=== PATIENT | female | born 1960 | race Caucasian/White ===

== ENCOUNTER 2018-06-21 09:36 | Emergency (ER) | END 2018-06-21 12:04 | disposition home or self-care (01) ==

== ENCOUNTER 2018-08-19 13:10 | Emergency (ER) | END 2018-08-19 15:58 | disposition home or self-care (01) ==

== ENCOUNTER 2018-10-29 08:37 | Emergency (ER) | END 2018-10-29 13:28 | disposition home or self-care (01) ==

== ENCOUNTER 2018-12-10 10:04 | Emergency (ER) | payer MEDICAID ==
[~2018-12-10] VITALS: Ht 152.4 cm; Wt 73.6 kg
[~2018-12-10 10:04] MED LIST: CEPH-443 PO; HYDR-4011 PO; IBUP800T48 PO; MUPI22OI2 TOP; NAPR-985 PO; SULF1TAB31 PO; TRAM50TA2 PO
[2018-12-10 10:12] VITALS: BP 180/71; PULSE 92; RESP 18; Ht 152.4 cm; Wt 73.6 kg
[2018-12-10] MEDS ORDERED: IBUP-1542 PO (12:37)
--- NOTE | 2018-12-10 17:14 | ERD ---
ER Documentation Chief Complaint Chief Complaint NECK PAIN AND LOWER BACK PAIN SINCE THIS AM HPI 58-year-old female presents for neck pain and low back pain times 1 day. The neck pain is located on the right side of the neck. Pain is rated 8 out of 10. She denies any pain radiation from the low back. Denies any fevers or chills. She took Advil 800 mg at home without relief. She also notes that she has chest pain which is worse with breathing. Denies chest pain when not taking deep breathes. Denies any fevers or chills. No shortness of breath, abdominal pain, nausea, vomiting. ROS All systems reviewed and are negative except as per history of present illness. Medications Home Meds Active Scripts Ibuprofen* (Motrin*) 600 Mg Tab, 600 MG PO Q6H PRN for PAIN AND OR ELEVATED TEMP, #30 TAB Prov:ROHAN ARCEO DO 12/10/18 Naproxen* (Naprosyn*) 500 Mg Tablet, 500 MG PO BID PRN for PAIN AND/OR INFLAMMATION, #30 TAB Prov:IVETH HICKS PA-C 10/29/18 Tramadol HCl (Tramadol HCl) 50 Mg Tablet, 50 MG PO Q6 PRN for PAIN, #15 TAB Prov:IVETH HICKS PA-C 10/29/18 Hydrocodone/Acetaminophen (Rumely 5-325 Tablet) 1 Each Tablet, 1 TAB PO Q6H PRN for PAIN, #20 TAB Prov:KATHY GUAMAN PA-C 08/19/18 Cephalexin* (Keflex*) 500 Mg Capsule, 500 MG PO QID for 7 Days, CAP Prov:KATHY GUAMAN PA-C 08/19/18 Ibuprofen* (Motrin*) 800 Mg Tab, 800 MG PO Q6, #30 TAB Prov:KATHY GUAMAN PA-C 08/19/18 Sulfamethoxazole/Trimethoprim* (Bactrim Ds* Tablet) 1 Each Tablet, 1 TAB PO BID, #14 TAB Prov:KATHY GUAMAN PA-C 08/19/18 Mupirocin* (Bactroban*) 2% -22 Gram Oint...g., 1 APPLIC TOP BID for 7 Days, EA Prov:MARGARITA DANIEL PA-C 06/21/18 Sulfamethoxazole/Trimethoprim* (Bactrim Ds* Tablet) 1 Each Tablet, 1 TAB PO BID, #14 TAB Prov:MARGARITA DANIEL PA-C 06/21/18 Cephalexin* (Keflex*) 500 Mg Capsule, 500 MG PO QID for 7 Days, CAP Prov:MARGARITA DANIEL PA-C 06/21/18 Allergies Allergies: Coded Allergies: No Known Allergy (Unverified , 10/29/18) PMhx/Soc History of Surgery: No Anesthesia Reaction: No Hx Neurological Disorder: No Hx Respiratory Disorders: No Hx Cardiac Disorders: No Hx Psychiatric Problems: No Hx Miscellaneous Medical Probl: No Hx Alcohol Use: No Hx Substance Use: No Hx Tobacco Use: No Smoking Status: Never smoker Physical Exam Vitals Temperature 98.0, pulse 92, respiration 18, pressure 180/71, O2 saturation 100% on room air Physical Exam Const: No acute distress Head: Atraumatic Eyes: Normal Conjunctiva ENT: Normal External Ears, Nose and Mouth. Neck: Full range of motion. No meningismus. right side cervical spine paravertebral muscle tenderness to palpation Resp: Clear to auscultation bilaterally Cardio: Regular rate and rhythm, no murmurs, bilateral radial and dorsalis pedis pulses intact Abd: Soft, non tender, non distended. Normal bowel sounds Skin: No petechiae or rashes Back: Lumbar spine paravertebral muscle tenderness to palpation, no midline tenderness, no point tenderness Ext: No cyanosis, or edema, bilateral upper and lower extremity muscle strength intact Neur: Awake and alert, bilateral upper and lower extremity sensation intact Psych: Normal Mood and Affect Results 24 hrs Laboratory Tests Test 12/10/18 11:25 White Blood Count 6.2 10^3/ul Red Blood Count 4.20 10^6/ul Hemoglobin 13.3 g/dl Hematocrit 38.5 % Mean Corpuscular Volume 91.7 fl Mean Corpuscular Hemoglobin 31.7 pg Mean Corpuscular Hemoglobin Concent 34.5 g/dl Red Cell Distribution Width 12.8 % Platelet Count 424 10^3/UL Mean Platelet Volume 8.8 fl Immature Granulocytes % 0.200 % Neutrophils % 62.5 % Lymphocytes % 26.1 % Monocytes % 7.8 % Eosinophils % 2.9 % Basophils % 0.5 % Nucleated Red Blood Cells % 0.0 /100WBC Immature Granulocytes # 0.010 10^3/ul Neutrophils # 3.9 10^3/ul Lymphocytes # 1.6 10^3/ul Monocytes # 0.5 10^3/ul Eosinophils # 0.2 10^3/ul Basophils # 0.0 10^3/ul Nucleated Red Blood Cells # 0.0 10^3/ul Sodium Level 134 mmol/L Potassium Level 3.8 mmol/L Chloride Level 96 mmol/L Carbon Dioxide Level 27 mmol/L Anion Gap 11 Blood Urea Nitrogen 7 mg/dl Creatinine 0.51 mg/dl Est Glomerular Filtrat Rate mL/min > 60 mL/min Glucose Level 134 mg/dl Calcium Level 9.3 mg/dl Total Bilirubin 0.1 mg/dl Direct Bilirubin 0.00 mg/dl Indirect Bilirubin 0.1 mg/dl Aspartate Amino Transf (AST/SGOT) 27 IU/L Alanine Aminotransferase (ALT/SGPT) 12 IU/L Alkaline Phosphatase 127 IU/L Troponin I < 0.012 ng/ml B-Type Natriuretic Peptide 181 PG/ML Total Protein 7.7 g/dl Albumin 4.5 g/dl Globulin 3.20 g/dl Albumin/Globulin Ratio 1.40 Procedures/MDM Medical Decision Making: Differential diagnosis includes but not limited to muscle strain, ligamentous sprain, epidural abscess, osteomyelitis, osteoarthritis, herniated disc, compression fracture, aortic aneurysm, kidney stone, pyelonephritis, pancrea titis. Differential diagnosis of chest pain includes but not limited to ACS, PE, pneumonia, pericarditis. Patient appeared well on physical examination. Nontoxic appearing. EKG showed normal sinus rhythm, no ST or T wave changes. Chest x-ray showed Small 6 mm left upper lobe nodular opacity, Right mid lung scarring, Calcified aorta consistent with atherosclerotic disease. Mild degenerative changes of the thoracic spine. Patient did have similar findings on CT scan a couple of months ago. The recommendation at that time was to repeat a CT in 3-4 months. Patient also has similar symptoms of chest pain with breathing couple months ago. CT at that time was negative for PE. CBC showed no anemia, no elevated WBC to suggest systemic infection CMP showed mildly low sodium, otherwise electrolytes normal, normal renal function. Patient mildly elevated on phosphatase. Otherwise liver function test was normal. Patient advised to repeat liver function test with her primary care physician. Troponin was negative. BNP was 181. Mildly elevated BNP unlikely to be the cause for patient's chest pain. Patient's chest pain most likely musculoskeletal in origin. Patient is advised however to follow with primary care physician for possible referral to cardiology. Current patient's low back pain, likely due to muscle strain Prescription(s): Patient given prescription for Motrin. Patient is advised follow-up with primary care physician for repeat CT scan regarding her lung nodule. Patient advised to follow up with PCP in 1-2 days. Patient advised to return to ED for new or worsening symptoms. Patient stable on discharge from the ED. Disclaimer: Inadvertent spelling and grammatical errors are likely due to EHR/dictation software use and do not reflect on the overall quality of patient care. Also, please note that the electronic time recorded on this note does not necessarily reflect the actual time of the patient encounter. Departure Diagnosis: Primary Impression: Lung nodules Additional Impression: Low back pain Condition: Fair Patient Instructions: Ibuprofen Oral tablet Additional Instructions: Llame al doctor MAANA y luther tequila PILY PARA DENTRO DE 1-2 AGUIRRE.Dgale a la secretaria que nosotros le instruimos hacer esta pily.Avise o llame si barlow condicin se empeora antes de la pily. Regresa aqui si peor o no mejor. ROHAN ARCEO DO Dec 10, 2018 17:14
== END 2018-12-10 12:39 | disposition home or self-care (01) ==
LOC: FTE 10:04
DX: R91.1 Solitary pulmonary nodule (principal)
CPT/HCPCS: 71046; 80053; 83880; 84484; 85025; 93005